=== PATIENT | male | born 1980 | race Caucasian/White ===

== ENCOUNTER 2016-07-16 03:49 | Inpatient (IN) | payer MEDICAID, OTHER ==
[~2016-07-16] VITALS: Ht 170.2 cm; Wt 66.7 kg
--- NOTE | 2016-07-16 04:18 | ERA ---
ER Documentation Chief Complaint Date/Time DATE: 07/16/16 TIME: 04:17 Chief Complaint RUQ abd pain nx 8 days HPI The patient is a 36-year-old male, presenting to the ER because of right upper quadrant abdominal pain intermittently for the last 8 days, worse with eating, . He complains of diarrhea intermittently for the last 5 days, denies any hematochezia. He denies fever, chills, neck pain, chest pain, palpitation, diaphoresis. He does not smoke, drink Past medical/surgical history: None ROS All systems reviewed and are negative except as per history of present illness. Allergies Allergies: Coded Allergies: No Known Allergy (Unverified , 07/16/16) Physical Exam Vitals Vital Signs Date Time Temp Pulse Resp B/P Pulse Ox O2 Delivery O2 Flow Rate FiO2 07/16/16 03:53 98.2 88 20 109/64 100 Physical Exam Const: No acute distress. Head: Atraumatic. Eyes: Normal Conjunctiva. ENT: Normal External Ears, Nose and Mouth. Neck: Full range of motion. No meningismus. Resp: Clear to auscultation bilaterally. Cardio: Regular rate and rhythm, no murmurs. Abd: Soft, non distended, normal bowel sounds, mild epigastric and right upper quadrant tenderness, no rigidity, rebound, CVA tenderness Skin: No petechiae or rashes. Back: No midline or flank tenderness. Ext: No cyanosis, or edema. Neur: Awake and alert. No focal deficit Psych: Normal Mood and Affect. Result Diagram: 07/16/16 0430 07/16/16 0430 Results 24 hrs Laboratory Tests Test 07/16/16 04:30 07/16/16 05:15 Alanine Aminotransferase (ALT/SGPT) 31IU/L Albumin 4.3g/dl Albumin/Globulin Ratio 1.16 Alkaline Phosphatase 113IU/L Anion Gap 17 Aspartate Amino Transf (AST/SGOT) 31IU/L Basophils # 0.110^3/ul Basophils % 0.7% Blood Urea Nitrogen 14mg/dl Calcium Level 9.8mg/dl Carbon Dioxide Level 25mmol/L Chloride Level 104mmol/L Creatinine 0.82mg/dl Direct Bilirubin 0.00mg/dl Eosinophils # 11.110^3/ul Eosinophils % 53.0% Globulin 3.70g/dl Glucose Level 92mg/dl Hematocrit 45.2% Hemoglobin 15.5g/dl Indirect Bilirubin 0.5mg/dl Lipase 104U/L Lymphocytes # 2.810^3/ul Lymphocytes % 13.6% Mean Corpuscular Hemoglobin 29.8pg Mean Corpuscular Hemoglobin Concent 34.4g/dl Mean Corpuscular Volume 86.5fl Mean Platelet Volume 8.4fl Monocytes # 0.910^3/ul Monocytes % 4.2% Neutrophils # 6.010^3/ul Neutrophils % 28.5% Nucleated Red Blood Cells # 0.010^3/ul Nucleated Red Blood Cells % 0.0/100WBC Platelet Count 88196^3/UL Potassium Level 3.8mmol/L Red Blood Count 5.2210^6/ul Red Cell Distribution Width 13.0% Sodium Level 142mmol/L Total Bilirubin 0.5mg/dl Total Protein 8.0g/dl White Blood Count 20.910^3/ul Bedside Urine Blood Negative Bedside Urine Glucose (UA) Negative Bedside Urine Ketones (LAB) Trace Bedside Urine Leukocyte Esterase (L Negative Bedside Urine Nitrite (LAB) Negative Bedside Urine Protein (LAB) Negative Bedside Urine pH (LAB) 5.5 Current Medications Medications (Trade) Dose Ordered Sig/Gale Route PRN Reason Start Time Stop Time Status Last Admin Dose Admin Sodium Chloride (NS) 1,000 ml @ 1,000 mls/hr Q1H STAT IV 07/16/16 04:21 07/16/16 05:20 DC 07/16/16 04:28 Hydromorphone HCl (Dilaudid) 1 mg ONCE STAT IV 07/16/16 04:21 07/16/16 04:23 DC 07/16/16 04:28 Ondansetron HCl (Zofran Inj) 4 mg ONCE STAT IV 07/16/16 04:21 07/16/16 04:23 DC 07/16/16 04:28 Procedures/MDM EKG: Read by emergency physician Rate/Rhythm: Normal Sinus Rhythm 61 beats per min QRS, ST, T-waves: No ST elevation, no T wave inversion Impression: Abnormal EKG MEDICAL MAKING DECISION: The patient is a 36-year-old male, presenting with acute abdominal pain with high leukocytosis, acute enteritis. The differential diagnoses considered include but are not limited to colitis, cholelithiasis, cholecystitis, cystitis, pancreatitis, hepatitis, gastritis, peptic ulcer disease, gastric ulcer, appendicitis, diverticulitis, cholangitis, choledocholithiasis, partial small bowel obstruction. The patient was treated with 1 L normal saline for clinical dehydration, Dilaudid 1 mg IV for pain, Zofran 4 mg IV for nausea, Cipro IV, Flagyl IV with good response Departure Diagnosis: Primary Impression: Abdominal pain Additional Impression: Enteritis Condition: Good Comments I discussed the findings with the patient. I discussed the patient with the on- call hospitalist Dr. Kline who was made aware of the lab, the treatment, the patient condition. The patient is admitted to medical surgery bed at 5:30 AM LUCRECIA SANCHEZ MD Jul 16, 2016 04:18
[2016-07-16] MEDS ORDERED: ONDANSETRON 4 MG INJ IV STA (04:21)
[2016-07-16] MEDS ORDERED: HYDROmorphONE 1 MG/ML SYG IV STA (04:21)
[2016-07-16] MEDS ORDERED: SOD CHLORIDE 0.9% 1,000 ML IV STA (04:21)
[2016-07-16 04:51] LABS: BASOPHIL # 0.1 10^3/ul (0.0-0.1); BASOPHILS % 0.7 % (0.0-2.0); EOSINOPHILS # 11.1 10^3/ul (0.0-0.5); HEMATOCRIT 45.2 % (42.0-52.0); HEMOGLOBIN 15.5 g/dl (14.0-18.0); LYMPHOCYTES # 2.8 10^3/ul (0.8-2.9); LYMPHOCYTES % 13.6 % (15.0-51.0); MEAN CORPUSCULAR HEMOGLOBIN 29.8 pg (29.0-33.0); MEAN CORPUSCULAR HGB CONC 34.4 g/dl (32.0-37.0); MEAN CORPUSCULAR VOLUME 86.5 fl (82.0-101.0); MEAN PLATELET VOLUME 8.4 fl (7.4-10.4); MONOCYTE # 0.9 10^3/ul (0.3-0.9); MONOCYTES % 4.2 % (0.0-11.0); NEUTROPHILS % 28.5 % (39.0-77.0); PLATELET COUNT 242 10^3/UL (140-440); RED BLOOD COUNT 5.22 10^6/ul (4.70-6.10); UNCORRECTED WBC 20.9 10^3/ul (4.8-10.8); WHITE BLOOD COUNT 20.9 10^3/ul (4.8-10.8)
[2016-07-16 05:02] LABS: CONDITION 1; LH ANALYZER COMMENTS 1
--- NOTE | 2016-07-16 05:02 | RADRPT ---
PROCEDURE: ULTRASOUND LIMITED ABDOMEN CLINICAL INDICATION: 36-year-old male with abdominal pain. TECHNIQUE: Multiple sonographic of the right upper quadrant of the abdomen were obtained. The imag es were reviewed on a PACS workstation. COMPARISON: None. FINDINGS: The pancreas is not visualized secondary to overlying bowel gas. The liver displays normal echogenicity. The liver measures 13.9 cm in length. No evidence of intrah epatic biliary ductal dilatation is seen. The portal and hepatic veins are unremarkable. The gallbladder demonstrates no wall thickening, sludge, nor stones. No pericholecystic fluid is see n. The common bile duct measures 2 point a mm and is not dilated. The right kidney displays normal echogenicity. The right kidney measures 9.6 cm in maximal length. N o caliectasis or hydronephrosis is seen. No free fluid is seen. IMPRESSION: Unremarkable right upper quadrant abdominal ultrasound. .Óscar Leon MD, MD Date Time Electronically viewed and signed by .Óscar Loen MD, on 07/16/2016 05:02 .Kuldip/
--- NOTE | 2016-07-16 05:14 | RADRPT ---
PROCEDURE: CT ABDOMEN/PELVIS WITHOUT CONTRAST CLINICAL INDICATION: 36-year-old male with abdominal pain. TECHNIQUE: The study was performed utilizing a [employer] VCT 64-slice CT scanner. Direct axia l sections were obtained through the abdomen and pelvis without the use of intravenous contrast mate rial. Sagittal and coronal reformations were obtained. Automated exposure control and iterative miller nstruction techniques were utilized for this examination. [facility] CTD/vol = 6.7 mGy; Total Exam DLP = 415.6 mGy-cm. COMPARISON: None. FINDINGS: The lung bases are unremarkable. There is no evidence for significant pleural effusion. The liver has a normal size and contour without focal areas of abnormal density. No intrahepatic nor extrahepa tic biliary ductal dilatation is seen. The gallbladder demonstrates no wall thickening nor perichole cystic fluid. No biliary stones are evident. The pancreas is without areas of abnormal attenuation. The spleen is identified and has a normal size without abnormal density. The adrenal glands are unr emarkable. The kidneys are without abnormal density. No hydroureteronephrosis nor nephroureterolithi asis is evident. The urinary bladder contains urine. There is mild fluid identified throughout the s mall bowel without definite transition point. There is mild retained stool within the ascending and transverse colon without obstruction. The appendix is visualized and is without abnormal thickenin g or surrounding inflammatory reaction. There is no significant free fluid. The prostate is not enlarged. Shotty mesenteric lymph nodes are identified. The aortoiliac vessels are without aneurys mal dilatation. The osseous structures are intact. IMPRESSION: 1. No CT evidence for obstructive uropathy or renal calculi. 2. Mild fluid identified throughout the small bowel without obstruction. This may representing ent eritis. 3. Mild retained stool within the proximal colon without obstruction. 4. No CT evidence for appendicitis. 5. Shotty mesenteric lymph nodes. .Óscar Leon MD, Date Time Electronically viewed and signed by .Óscar Leon MD, MD on 07/16/2016 05:14 .Libertad
[2016-07-16 05:16] LABS: URINE BLOOD (Dip) POC Negative (NEGATIVE)
[2016-07-16 05:20] LABS: ALBUMIN 4.3 g/dl (3.3-4.9)
[2016-07-16 05:21] LABS: POTASSIUM 3.8 mmol/L (3.5-5.1)
[2016-07-16 05:23] LABS: ALBUMIN/GLOBULIN RATIO 1.16; BILIRUBIN,INDIRECT 0.5 mg/dl (0-1.1); BILIRUBIN,TOTAL 0.5 mg/dl (0.2-1.3); CREATININE 0.82 mg/dl (0.61-1.24)
[2016-07-16 05:24] LABS: CALCIUM 9.8 mg/dl (8.4-10.2)
--- NOTE | 2016-07-16 05:52 | HP ---
Date/Time of Note Date/Time of Note DATE: 07/16/16 TIME: 05:46 Assessment/Plan VTE Prophylaxis VTE Prophylaxis Intervention: SCD's Assessment/Plan Assessment/Plan 36 yo male with no significant past medical history who complains of abdominal pain and diarrhea for the last 8 days. 1. Abdominal pain - 2/2 infectious colitis - will admit the patient to med/surg , continue with cipro/flagyl, obtain stool studies, monitor acute changes, IVF, start clear liquid diet as tolerated. 2. Leukocytosis 2/2 #1 - continue to monitor trend and cultures 3. Dehydration 2/2 #1 - continue with IVF 4. GI ppx - pepcid 5. DVT ppx - scds answered all of his questions. as per clinical course. this history and physical took greater then 45 minutes to complete HPI/ROS Admit Date/Time Admit Date/Time 07/16/2016, 5:46 am Hx of Present Illness 36 yo male with no significant past medical history who complains of abdominal pain and diarrhea for the last 8 days. He states that the abdominal pain is diffuse, crampy in nature, 10/10 in intensity, no alleviating factors, associated with diarrhea 3 x day for the past 5 days, non-bloody. Otherwise having intermittent fevers/chills and generalized malaise. Denies any chest pain , shortness of breath, loss of consciousness, headaches, urinary symptoms or other constitutional symptoms. Denies any new foods, undercook meats, recent travel or sick contacts. ER course: pain medication, IV cipro/flagyl ROS 14 point review of systems completed, please refer to HPI for any positive findings PMH/Family/Social Past Medical History Medical History: no pertinent history Past Surgical History Past Surgical Hx: no surgical history Family History Significant Family History: no pertinent family hx Social History Alcohol Use: none Smoking Status: Never smoker Drug Use: none Exam/Review of Systems Vital Signs Vitals Vital Signs Date Time Temp Pulse Resp B/P Pulse Ox O2 Delivery O2 Flow Rate FiO2 07/16/16 05:43 64 16 106/70 99 Room Air 07/16/16 03:53 98.2 Exam Exam Gen Brown: moderate distress 2/2 abdominal pain, AAOx4 HEENT: NC/AT, PERRLA, EOMI, no pharyngeal erythema, no tonsillar exudates, no lymphadenopathy, no JVD, no carotid bruits NECK: supple, no thyromegaly THORAX: symmetrical, no obvious deformities CV: S1S2, RRR, no M/G/R Lungs: CTAB no W/C/R/R Abd: soft, tenderness to palpation all quadrants/ND, +BS, no rebound, no guarding, neg HSM EXT: no edema, no ecchymosis, no clubbing, FROM Neuro: CN II-XII grossly intact, no focal deficits Psych: anxious Skin: C/D/I Labs Result Diagram: 07/16/1642907/16/16429 Medications Medications Current Medications Ciprofloxacin/ Dextrose 200 ml @ 200 mls/hr ONCE ONCE IVPB Last administered on 07/16/16t 05:37; Admin Dose 200 MLS/HR; Start 07/16/16 at 06:00; Stop at 06:59 Metronidazole (Flagyl 500 Mg (Pmx)) 100 ml @ 100 mls/hr ONCE ONCE IVPB ; Start 07/16/16 at 06:00; Stop 07/16/16 at 06:[address] abd/pelvis IMPRESSION: 1. No CT evidence for obstructive uropathy or renal calculi. 2. Mild fluid identified throughout the small bowel without obstruction. This may representing enteritis. 3. Mild retained stool within the proximal colon without obstruction. 4. No CT evidence for appendicitis. 5. Shotty mesenteric lymph nodes. US gallbladder IMPRESSION: Unremarkable right upper quadrant abdominal ultrasound ORLANDO RASHID MD Jul 16, 2016 05:52
[2016-07-16] MEDS ORDERED: metroNIDAZOLE 500 MG/NS (PMX) 100 ML IVPB ONE (06:00)
[2016-07-16] MEDS ORDERED: morphine 2 MG INJ IV PRN (06:00)
[2016-07-16] MEDS ORDERED: CIPROFLOXACIN 400MG/D5W 200 ML IVPB ONE (06:00)
[2016-07-16] MEDS ORDERED: NACL 0.9% 3 ML SYG IV SCH (06:00)
[2016-07-16] MEDS: ONDANSETRON 4 MG INJ IV PRN (06:47)
[2016-07-16] MEDS: SOD CHLORIDE 0.9% 1,000 ML IV SCH ×2 (06:49→11:14)
[2016-07-16 07:12] VITALS: TEMP 98.3
[2016-07-16 07:19] LABS: MAGNESIUM 1.8 mg/dl (1.7-2.5)
[2016-07-16 07:40] VITALS: Ht 170.2 cm; Wt 66.7 kg
[2016-07-16 07:50] LABS: THYROID STIMULATING HORMONE 2.29 MIU/L (0.465-4.680)
[2016-07-16] MEDS: FAMOTIDINE 20 MG INJ IV SCH ×2 (08:28→20:52)
[2016-07-16] MEDS: metroNIDAZOLE 500 MG/NS (PMX) 100 ML IVPB SCH ×2 (14:16→22:33)
[2016-07-16 19:00] VITALS: BP 105/63; RESP 19
[2016-07-16] MEDS: CIPROFLOXACIN 400MG/D5W 200 ML IVPB SCH (20:52)
[2016-07-16] MEDS: DOCUSATE SODIUM 100 MG CAP PO SCH (20:52)
[2016-07-16] MEDS: ACETAMINOPHEN 325 MG TAB PO PRN (20:53)
[2016-07-17] MEDS: SOD CHLORIDE 0.9% 1,000 ML IV SCH ×4 (01:42→20:47)
[2016-07-17] MEDS: metroNIDAZOLE 500 MG/NS (PMX) 100 ML IVPB SCH ×3 (05:51→22:09)
[2016-07-17 06:41] LABS: HEMATOCRIT 41.1 % (42.0-52.0); HEMOGLOBIN 14.4 g/dl (14.0-18.0); MEAN CORPUSCULAR HEMOGLOBIN 30.2 pg (29.0-33.0); MEAN CORPUSCULAR HGB CONC 34.9 g/dl (32.0-37.0); MEAN CORPUSCULAR VOLUME 86.5 fl (82.0-101.0); MEAN PLATELET VOLUME 8.4 fl (7.4-10.4); PLATELET COUNT 209 10^3/UL (140-440); RED BLOOD COUNT 4.76 10^6/ul (4.70-6.10); RED CELL DISTRIBUTION WIDTH 12.8 % (11.5-14.5); UNCORRECTED WBC 13.6 10^3/ul (4.8-10.8); WHITE BLOOD COUNT 13.6 10^3/ul (4.8-10.8)
[2016-07-17 07:11] LABS: CONDITION 1; LH ANALYZER COMMENTS 1
[2016-07-17 07:12] LABS: POTASSIUM 4.1 mmol/L (3.5-5.1)
[2016-07-17 07:15] LABS: CALCIUM 8.8 mg/dl (8.4-10.2); CREATININE 0.85 mg/dl (0.61-1.24)
[2016-07-17 07:48] VITALS: BP 115/52; RESP 18
[2016-07-17] MEDS: DOCUSATE SODIUM 100 MG CAP PO SCH ×2 (08:32→20:49)
[2016-07-17] MEDS: FAMOTIDINE 20 MG INJ IV SCH ×2 (08:33→20:50)
[2016-07-17] MEDS: CIPROFLOXACIN 400MG/D5W 200 ML IVPB SCH ×2 (08:33→20:47)
[2016-07-17] MEDS ORDERED: INFLUENZA VIRUS VACCINE 0.5 ML (DISPENSING) IM* ONE (09:00)
[2016-07-17] MEDS ORDERED: METR500T PO (10:21)
[2016-07-17] MEDS ORDERED: CIPR500T4 PO (10:21)
--- NOTE | 2016-07-17 10:24 | PN ---
Date/Time of Note Date/Time of Note DATE: 07/17/16 TIME: 10:06 Assessment/Plan VTE Prophylaxis VTE Prophylaxis Intervention: ambulation Lines/Catheters IV Catheter Type (from Nrs): Peripheral IV Urinary Cath still in place: No Assessment/Plan Assessment/Plan 36 yo male with no significant past medical history who complains of abdominal pain and diarrhea for the last 8 days. 1. Abdominal pain - 2/2 infectious colitis - will admit the patient to med/surg , continue with cipro/flagyl, obtain stool studies, monitor acute changes, IVF, start clear liquid diet as tolerated. 2. Leukocytosis 2/2 #1 - continue to monitor trend and cultures 3. Dehydration 2/2 #1 - continue with IVF 4. GI ppx - pepcid 5. DVT ppx - scds answered all of his questions. as per clinical course. Subjective 24 Hr Interval Summary Free Text/Dictation patient feeling hungry, denies abd pain Exam/Review of Systems Vital Signs Vitals Vital Signs Date Time Temp Pulse Resp B/P Pulse Ox O2 Delivery O2 Flow Rate FiO2 07/17/16 07:48 98.2 59 18 115/52 97 07/16/16 07:12 Room Air Intake and Output 07/16/16 07/16/16 07/17/16 15:00 23:00 07:00 Intake Total 1000 ml 2100 ml 800 ml Balance 1000 ml 2100 ml 800 ml Exam Gen Brown: No distress, AAOx4 HEENT: NC/AT, PERRLA, EOMI, no pharyngeal erythema, no tonsillar exudates, no lymphadenopathy, no JVD, no carotid bruits NECK: supple, no thyromegaly THORAX: symmetrical, no obvious deformities CV: S1S2, RRR, no M/G/R Lungs: CTAB no W/C/R/R Abd: soft, no tenderness to palpation all quadrants/ND, +BS, no rebound, no guarding, neg HSM EXT: no edema, no ecchymosis, no clubbing, FROM Neuro: CN II-XII grossly intact, no focal deficits Psych: anxious Skin: C/D/I Results Result Diagram: 07/17/16 0500 07/17/16 0500 Results 24 hrs Laboratory Tests Test 07/17/16 05:00 Anion Gap 14 Basophils # Pending Basophils % Pending Blood Urea Nitrogen 8 Calcium Level 8.8 Carbon Dioxide Level 25 Chloride Level 107 Creatinine 0.85 Eosinophils # Pending Eosinophils % Pending Glucose Level 65 #L Hematocrit 41.1 L Hemoglobin 14.4 Lymphocytes # Pending Lymphocytes % Pending Magnesium Level 1.9 Mean Corpuscular Hemoglobin 30.2 Mean Corpuscular Hemoglobin Concent 34.9 Mean Corpuscular Volume 86.5 Mean Platelet Volume 8.4 Monocytes # Pending Monocytes % Pending Neutrophils # Pending Neutrophils % Pending Nucleated Red Blood Cells # Pending Nucleated Red Blood Cells % Pending Platelet Count 209 Potassium Level 4.1 Red Blood Count 4.76 Red Cell Distribution Width 12.8 Sodium Level 142 White Blood Count 13.6 #H Medications Medications Current Medications Sodium Chloride (NS) 1,000 ml @ 100 mls/hr Q10H IV Last administered on 04:06; Admin Dose 100 MLS/HR; Start 07/16/16 at 05:42 Ondansetron HCl (Zofran Inj) 4 mg Q6H PRN IV NAUSEA AND/OR VOMITING Last administered on 07/16/16 06:47; Admin Dose 4 MG; Start 07/16/16 at 06:00 Acetaminophen (Tylenol Tab) 650 mg Q6H PRN PO PAIN LEVEL 1-3 OR FEVER Last administered on 07/16/16 20:53; Admin Dose 650 MG; Start 07/16/16 at 06:00 Morphine Sulfate (morphine) 2 mg Q4H PRN IV SEVERE PAIN LEVEL 7-10 Last administered on 07/16/16 11:28; Admin Dose 2 MG; Start 07/16/16 at 06:00 Famotidine 20 mg 20 mg Q12 IV Last administered on 07/17/16 08:33; Admin Dose 20 MG; Start 07/16/16 at 09:00 Ciprofloxacin/ Dextrose 200 ml @ 200 mls/hr Q12 IVPB Last administered on 07/17 08:33; Admin Dose 200 MLS/HR; Start 07/16/16 at 21:00 Metronidazole (Flagyl 500 Mg (Pmx)) 100 ml @ 100 mls/hr Q8 IVPB Last administered on 07/17/16 05:51; Admin Dose 100 MLS/HR; Start 07/16/16 at 14:00 Docusate Sodium (Colace) 100 mg BID PO Last administered on 07/17/16 08:32; Admin Dose 100 MG; Start 07/16/16 at 21:00 STEFANY SO Jul 17, 2016 10:16
[2016-07-17 10:51] LABS: BASOPHIL # 0.4 10^3/ul (0.0-0.1); EOSINOPHILS # 5.4 10^3/ul (0.0-0.5); LYMPHOCYTES # 2.6 10^3/ul (0.8-2.9); MONOCYTE # 0.7 10^3/ul (0.3-0.9); NEUTROPHIL # 4.4 10^3/ul (1.6-7.5)
[2016-07-17] MEDS: ACETAMINOPHEN 325 MG TAB PO PRN ×2 (15:13→20:49)
[2016-07-17 20:25] VITALS: BP 110/55; RESP 20
[2016-07-17] MEDS: ONDANSETRON 4 MG INJ IV PRN (22:10)
[2016-07-18] MEDS: ACETAMINOPHEN 325 MG TAB PO PRN ×2 (02:39→10:22)
[2016-07-18] MEDS: ONDANSETRON 4 MG INJ IV PRN ×2 (06:00→18:35)
[2016-07-18] MEDS: metroNIDAZOLE 500 MG/NS (PMX) 100 ML IVPB SCH ×3 (06:01→22:18)
[2016-07-18] MEDS: SOD CHLORIDE 0.9% 1,000 ML IV SCH ×3 (07:42→17:42)
[2016-07-18 08:00] VITALS: BP 101/60; RESP 24
[2016-07-18] MEDS: FAMOTIDINE 20 MG INJ IV SCH (08:40)
[2016-07-18] MEDS: DOCUSATE SODIUM 100 MG CAP PO SCH ×2 (08:40→20:28)
[2016-07-18] MEDS: CIPROFLOXACIN 400MG/D5W 200 ML IVPB SCH ×2 (08:40→20:28)
--- NOTE | 2016-07-18 11:01 | PN ---
Date/Time of Note Date/Time of Note DATE: 07/18/16 TIME: 10:58 Assessment/Plan VTE Prophylaxis VTE Prophylaxis Intervention: SCD's Lines/Catheters IV [facility] ([facility] Peripheral IV Urinary Cath still in place: No Assessment/Plan Assessment/Plan 36 yo male with no significant past medical history who complains of abdominal pain and diarrhea for the last 8 days. 1. Abdominal pain - 2/2 #2 2. Acute enteritis r/o PUD 3. Leukocytosis 2/2 #1 - improved 4. Eosinophilia on CBC PLAN: Cont abx / GI consult / f/u stool studies / d/c pepcid and start PPI IV /pain control/ antiemetics/ antipyretics/ supportive care GI ppx - PPI DVT ppx - scds answered all of his questions. as per clinical course. Subjective 24 Hr Interval Summary Free Text/Dictation still with abd pain omero with food Exam/Review of Systems Vital Signs Vitals Vital Signs Date Time Temp Pulse Resp B/P Pulse Ox O2 Delivery O2 Flow Rate FiO2 07/18/16 08:00 98.5 54 24 101/60 97 07/16/16 07:12 Room Air Intake and Output 07/17/16 07/17/16 07/18/16 15:00 23:00 07:00 Intake Total 2400 ml 1380 ml Balance 2400 ml 1380 ml Exam Constitutional: alert, oriented Psych: anxiety Head: atraumatic, normocephalic Eyes: PERRL ENMT: mucosa pink and moist Respiratory: clear to auscultation Cardiovascular: regular rate and rhythm, No murmurs/extra sounds Gastrointestinal: bowel sounds, non-tender, soft Extremities: No edema Neurological: nl mental status, nl speech Results Result Diagram: 07/17/16 0500 07/17/16 0500 Medications Medications Current Medications Sodium Chloride (NS) 1,000 ml @ 100 mls/hr Q10H IV Last administered on 20:47; Admin Dose 100 MLS/HR; Start 07/16/16 at 05:42 Ondansetron HCl (Zofran Inj) 4 mg Q6H PRN IV NAUSEA AND/OR VOMITING Last administered on 07/18/16 06:00; Admin Dose 4 MG; Start 07/16/16 at 06:00 Acetaminophen (Tylenol Tab) 650 mg Q6H PRN PO PAIN LEVEL 1-3 OR FEVER Last administered on 07/18/16 10:22; Admin Dose 650 MG; Start 07/16/16 at 06:00 Morphine Sulfate (morphine) 2 mg Q4H PRN IV SEVERE PAIN LEVEL 7-10 Last administered on 07/16/16 11:28; Admin Dose 2 MG; Start 07/16/16 at 06:00 Famotidine 20 mg 20 mg Q12 IV Last administered on 07/18/16 08:40; Admin Dose 20 MG; Start 07/16/16 at 09:00 Ciprofloxacin/ Dextrose 200 ml @ 200 mls/hr Q12 IVPB Last administered on 07/18 08:40; Admin Dose 200 MLS/HR; Start 07/16/16 at 21:00 Metronidazole (Flagyl 500 Mg (Pmx)) 100 ml @ 100 mls/hr Q8 IVPB Last administered on 07/18/16 06:01; Admin Dose 100 MLS/HR; Start 07/16/16 at 14:00 Docusate Sodium (Colace) 100 mg BID PO Last administered on 07/18/16 08:40; Admin Dose 100 MG; Start 07/16/16 at 21:00 STEFANY SO Jul 18, 2016 11:01
[2016-07-18 11:35] LABS: BASOPHIL # 0.1 10^3/ul (0.0-0.1); BASOPHILS % 1.2 % (0.0-2.0); EOSINOPHILS # 1.6 10^3/ul (0.0-0.5); EOSINOPHILS % 20.5 % (0.0-7.0); HEMATOCRIT 40.3 % (42.0-52.0); HEMOGLOBIN 13.9 g/dl (14.0-18.0); LYMPHOCYTES # 1.8 10^3/ul (0.8-2.9); LYMPHOCYTES % 22.7 % (15.0-51.0); MEAN CORPUSCULAR HEMOGLOBIN 29.8 pg (29.0-33.0); MEAN CORPUSCULAR HGB CONC 34.5 g/dl (32.0-37.0); MEAN CORPUSCULAR VOLUME 86.4 fl (82.0-101.0); MEAN PLATELET VOLUME 7.9 fl (7.4-10.4); MONOCYTE # 0.8 10^3/ul (0.3-0.9); MONOCYTES % 9.9 % (0.0-11.0); NEUTROPHIL # 3.6 10^3/ul (1.6-7.5); NEUTROPHILS % 45.7 % (39.0-77.0); PLATELET COUNT 207 10^3/UL (140-440); RED BLOOD COUNT 4.67 10^6/ul (4.70-6.10); RED CELL DISTRIBUTION WIDTH 12.9 % (11.5-14.5); UNCORRECTED WBC 7.9 10^3/ul (4.8-10.8); WHITE BLOOD COUNT 7.9 10^3/ul (4.8-10.8)
[2016-07-18 11:36] LABS: CONDITION 1; LH ANALYZER COMMENTS 1; POTASSIUM 3.8 mmol/L (3.5-5.1)
[2016-07-18 11:39] LABS: CALCIUM 8.8 mg/dl (8.4-10.2); CREATININE 0.79 mg/dl (0.61-1.24)
--- NOTE | 2016-07-18 12:06 | CONS ---
Date/Time of Note Date/Time of Note DATE: 07/18/16 TIME: 11:55 Assessment/Plan Assessment/Plan Chief Complaint/Hosp Course Impression: 1. Abdominal pain 2. peripheral eosinophilia: r/o parasites, eosinophilic gastroenterolitis, eosinophilic colitis. 3. Leukocytosis: improved 4. Diarrhea PLAN: 1. protonix for management of possible esophagitis, gastritic, PUD 2. plan for EGD and colonoscopy tomorrow for diagnosis and to obtain biopsies from upper and lower intestines. 3. f/u stool studies. For whatever reason, pt had BM yesterday but stool studies were not collected but were ordered since 07-16-16. Due to the peripheral eosinophilia, will need to r/o O&P. I wrote a nurse communication explain this so hopefully will be collected. 4. OK from GI perspective to continue with bushra and lashonda for now. Problems: Consultation Date/Type/Reason Admit Date/Time 07/16/2016, 5:46 am Type of Consultation: GI Hx of Present Illness 36 yo male with no significant past medical history who complains of abdominal pain and diarrhea for the 10 days prior to admission. He states that the abdominal pain is diffuse, crampy in nature, epigastric region, 10/10 in intensity, no alleviating factors. He has associated diarrhea 3 x day, watery, non-bloody. He continued to have diarrhea during this hospitalization, last episode today. Patient has nausea and vomiting during this hospitalization but associated with antibiotics that were given during this hospitalization. Otherwise having intermittent fevers/chills and generalized malaise. Denies any chest pain, shortness of breath, loss of consciousness, headaches, urinary symptoms or other constitutional symptoms. Denies any new foods, undercook meats , recent travel or sick contacts. Work up showed eosinophilia. All point ROS administered, pertinent positives and negatives in HPI otherwise negative. Psychological: anxiety Past Medical History Medical History: no pertinent history Past Surgical History Past Surgical Hx: no surgical history Family History Significant Family History: no pertinent family hx Social History Alcohol Use: none Smoking Status: Never smoker Drug Use: none Exam/Review of Systems Vital Signs Vitals Vital Signs Date Time Temp Pulse Resp B/P Pulse Ox O2 Delivery O2 Flow Rate FiO2 07/18/16 08:00 98.5 54 24 101/60 97 07/16/16 07:12 Room Air Intake and Output 07/17/16 07/17/16 07/18/16 15:00 23:00 07:00 Intake Total 2400 ml 1380 ml Balance 2400 ml 1380 ml Exam Constitutional: alert, oriented, well developed Psych: nl mood/affect, no complaints Head: atraumatic, normocephalic Eyes: EOMI, nl conjunctiva, nl lids, nl sclera ENMT: mucosa pink and moist, nl external ears & nose, nl lips & teeth, nl nasal mucosa & septum Neck: non-tender, supple Respiratory: clear to auscultation, normal air movement Cardiovascular: nl pulses, regular rate and rhythm Gastrointestinal: bowel sounds, soft, tender (epigastric region, no r/g) Musculoskeletal: nl extremities to inspection, nl gait and stance Neurological: nl mental status, nl speech, nl strength Results Result Diagram: 07/18/16 1100 07/18/16 1100 Results 24 hrs Laboratory Tests Test 07/18/16 11:00 Anion Gap 15 Basophils # 0.1 Basophils % 1.2 Blood Urea Nitrogen 6 L Calcium Level 8.8 Carbon Dioxide Level 25 Chloride Level 105 Creatinine 0.79 Eosinophils # 1.6 H Eosinophils % 20.5 H Glucose Level 91 Hematocrit 40.3 L Hemoglobin 13.9 L Lymphocytes # 1.8 Lymphocytes % 22.7 Mean Corpuscular Hemoglobin 29.8 Mean Corpuscular Hemoglobin Concent 34.5 Mean Corpuscular Volume 86.4 Mean Platelet Volume 7.9 Monocytes # 0.8 Monocytes % 9.9 Neutrophils # 3.6 Neutrophils % 45.7 Nucleated Red Blood Cells # 0.0 Nucleated Red Blood Cells % 0.0 Platelet Count 207 Potassium Level 3.8 Red Blood Count 4.67 L Red Cell Distribution Width 12.9 Sodium Level 141 White Blood Count 7.9 # Medications Medications Current Medications Sodium Chloride (NS) 1,000 ml @ 100 mls/hr Q10H IV Last administered on 11:44; Admin Dose 100 MLS/HR; Start 07/16/16 at 05:42 Ondansetron HCl (Zofran Inj) 4 mg Q6H PRN IV NAUSEA AND/OR VOMITING Last administered on 07/18/16 06:00; Admin Dose 4 MG; Start 07/16/16 at 06:00 Acetaminophen (Tylenol Tab) 650 mg Q6H PRN PO PAIN LEVEL 1-3 OR FEVER Last administered on 07/18/16 10:22; Admin Dose 650 MG; Start 07/16/16 at 06:00 Morphine Sulfate 2 mg 2 mg Q4H PRN IV SEVERE PAIN LEVEL 7-10 Last administered on 07/16/16 11:28; Admin Dose 2 MG; Start 07/16/16 at 06:00 Ciprofloxacin/ Dextrose 200 ml @ 200 mls/hr Q12 IVPB Last administered on 07/18 08:40; Admin Dose 200 MLS/HR; Start 07/16/16 at 21:00 Metronidazole (Flagyl 500 Mg (Pmx)) 100 ml @ 100 mls/hr Q8 IVPB Last administered on 07/18/16 06:01; Admin Dose 100 MLS/HR; Start 07/16/16 at 14:00 Docusate Sodium (Colace) 100 mg BID PO Last administered on 07/18/16 08:40; Admin Dose 100 MG; Start 07/16/16 at 21:00 Pantoprazole (Protonix Iv) 40 mg BID@06,18 IV ; Start 07/18/16 at 11:00 Bisacodyl (Dulcolax) 10 mg ONCE ONCE PO ; Start 07/18/16 at 16:00; Stop at 16:01; Status UNV Magnesium Citrate (Citroma) 300 ml ONCE ONCE PO ; Start 07/18/16 at 18:00; Stop 07/18/16 at 18:01; Status UNV MICHAEL ANGULO MD Jul 18, 2016 12:05
[2016-07-18] MEDS: PANTOPRAZOLE 40 MG INJ IV SCH ×2 (12:59→17:55)
[2016-07-18] MEDS ORDERED: BISACODYL (EC) 5 MG TAB PO ONE (16:00)
[2016-07-18] MEDS: METOCLOPRAMIDE 10 MG INJ IV SCH ×2 (16:16→22:18)
[2016-07-18] MEDS ORDERED: MAGNESIUM CITRATE 300 ML BTL PO ONE (18:00)
[2016-07-18 19:21] VITALS: BP 89/53; RESP 16
[2016-07-18] MEDS ORDERED: POLYETHYLENE GLYCOL 3350 119 GM POWDER PO ONE (20:00)
[2016-07-18 21:00] VITALS: BP 96/58; PULSE 59
[2016-07-19] VITALS (9 sets, daily range): BP systolic 91–110; BP diastolic 55–72; PULSE 52–59; RESP 16–22
[2016-07-19] MEDS: SOD CHLORIDE 0.9% 1,000 ML IV SCH ×3 (03:20→23:11)
[2016-07-19] MEDS: PANTOPRAZOLE 40 MG INJ IV SCH ×2 (05:28→18:47)
[2016-07-19] MEDS: metroNIDAZOLE 500 MG/NS (PMX) 100 ML IVPB SCH ×3 (05:29→23:11)
[2016-07-19 05:39] LABS: BASOPHIL # 0.1 10^3/ul (0.0-0.1); BASOPHILS % 0.8 % (0.0-2.0); EOSINOPHILS # 2.3 10^3/ul (0.0-0.5); EOSINOPHILS % 26.9 % (0.0-7.0); HEMATOCRIT 41.2 % (42.0-52.0); HEMOGLOBIN 14.5 g/dl (14.0-18.0); LYMPHOCYTES # 1.9 10^3/ul (0.8-2.9); LYMPHOCYTES % 22.9 % (15.0-51.0); MEAN CORPUSCULAR HEMOGLOBIN 30.8 pg (29.0-33.0); MEAN CORPUSCULAR HGB CONC 35.3 g/dl (32.0-37.0); MEAN CORPUSCULAR VOLUME 87.3 fl (82.0-101.0); MEAN PLATELET VOLUME 8.1 fl (7.4-10.4); MONOCYTE # 0.7 10^3/ul (0.3-0.9); MONOCYTES % 8.7 % (0.0-11.0); NEUTROPHIL # 3.4 10^3/ul (1.6-7.5); NEUTROPHILS % 40.7 % (39.0-77.0); PLATELET COUNT 205 10^3/UL (140-440); RED BLOOD COUNT 4.72 10^6/ul (4.70-6.10); RED CELL DISTRIBUTION WIDTH 13.2 % (11.5-14.5); UNCORRECTED WBC 8.4 10^3/ul (4.8-10.8); WHITE BLOOD COUNT 8.4 10^3/ul (4.8-10.8)
[2016-07-19 05:49] LABS: CONDITION 1; LH ANALYZER COMMENTS 1
[2016-07-19 05:55] LABS: POTASSIUM 3.8 mmol/L (3.5-5.1)
[2016-07-19 05:57] LABS: CREATININE 0.86 mg/dl (0.61-1.24)
[2016-07-19 05:58] LABS: CALCIUM 8.8 mg/dl (8.4-10.2)
[2016-07-19 05:59] LABS: INR 1.4; PROTIME 17.2 Sec (12.2-14.2); PT RATIO 1.3
--- NOTE | 2016-07-19 08:59 | OPR ---
Date/Time of Note Date/Time of Note DATE: 07/19/16 TIME: 08:47 Operative Report Free Text/Dictation Impression: 1. severe gastropathy 2. 3 cm hiatal hernia 3. mildly edematous atrophic duodenum 4. rectal polyp 5. small internal hemorrhoids Recommendations: 1. f/u all biopsies 2. continue protonix 40 mg bid 3. I sent off H. pylori serology and treat for eradication if positive. Procedure Date: Jul 19, 2016 Preoperative Diagnosis 1. intractable abdominal pain 2. intractable nausea and vomiting 3. watery diarrhea Postoperative Diagnosis 1. moderate to severe gastropathy 2. rectal polyp s/p polypectomy Operation Performed 1. EGD with biopsy 2. colonoscopy with biopsy and polypectomy Anesthesia: other (conscious sedation with versed 4 mg and fentanyl 100 mcg iv throughout the procedure) Estimated Blood Loss: minimal Specimens duodenal, gastric and colon biopsies rectal polyp Tubes/Drains none Complications: None Pt Condition Post Procedure: stable Disposition: other (recover in GI lab and transfer to patient's in-pt room once meets post-conscious sedation criteria) Indications intractable nausea, vomiting, abdominal pain and diarrhea. Procedure Description After we obtained informed consent and time out, we inserted an adult EGD scope from the mouth and advanced to the second portion of the duodenum. The duodenal bulb and visualized duodenum appeared mildly atrophic and random biopsies were taken. The EGD scope then withdrawn to the stomach where antrum and body appeared to have severe gastropathy with redness, erythema, and erosions. Random biopsies were obtained from the antrum and body. Retroflexion done in the body of stomach revealing 3 cm hiatal hernia and less gastropathy in the fundus and cardia. GEJ and Z line at 38 cm. I then removed air and completely withdrawn the EGD scope. After the completion of EGD, we turned the patient around for a colonoscopy. Perianal exam was normal with normal rectal tone, no anal fissure/ulcer/ erosions. I then inserted an adult colonoscope from the anus to the cecum as evidenced by IC valve and appendiceal orifice. The colon appeared normal except for a diminutive rectal polyp s/p polypectomy with complete excision. I took random biopsies in the right colon, transverse colon, left colon and rectum. Retroflexion was performed in the rectum revealing small internal hemorrhoids. I then completely removed the colonoscope while removing air. MICHAEL ANGULO MD Jul 19, 2016 08:59
[2016-07-19] MEDS: CIPROFLOXACIN 400MG/D5W 200 ML IVPB SCH ×2 (09:52→21:37)
[2016-07-19] MEDS: DOCUSATE SODIUM 100 MG CAP PO SCH ×2 (09:53→21:00)
--- NOTE | 2016-07-19 10:05 | PN ---
Date/Time of Note Date/Time of Note DATE: 07/19/16 TIME: 10:01 Assessment/Plan VTE Prophylaxis VTE Prophylaxis Intervention: SCD's Lines/Catheters IV [facility]ter Type (from [facility]): Peripheral IV Urinary Cath still in place: No Assessment/Plan Assessment/Plan 36 yo male with no significant past medical history who complains of abdominal pain and diarrhea for the last 8 days. 1. Abdominal pain - 2/2 #2 2. Acute enteritis r/o PUD 3. Leukocytosis 2/2 #1 - improved 4. Eosinophilia on CBC: f/u path to r/o IBD/ Stool testing negative for O&P 5. Severe Gastropathy on EGD with atrophic edematous duodenum PLAN: Continue to follow GI recs / possible d/c once tolerating a diet without pain and if cleared by GI Cont abx /pain control/ antiemetics/ antipyretics/ supportive care GI ppx - PPI DVT ppx - scds answered all of his questions. as per clinical course. Subjective 24 Hr Interval Summary Free Text/Dictation s/p EGD / colon this am. Lethargic Exam/Review of Systems Vital Signs Vitals Vital Signs Date Time Temp Pulse Resp B/P Pulse Ox O2 Delivery O2 Flow Rate FiO2 07/19/16 09:17 18 109/71 100 Room Air 07/19/16 08:10 97.1 52 Intake and Output 07/18/16 07/18/16 07/19/16 15:00 23:00 07:00 Intake Total 600 ml 500 ml 1200 ml Balance 600 ml 500 ml 1200 ml Exam Constitutional: oriented, No distress Head: normocephalic Eyes: PERRL Respiratory: clear to auscultation Cardiovascular: regular rate and rhythm Gastrointestinal: bowel sounds, soft, tender (sore) Extremities: No edema Neurological: lethargic Results Result Diagram: 07/19/16 0505 07/19/16 0505 Results 24 hrs Laboratory Tests Test 07/18/16 11:00 07/19/16 05:05 Anion Gap 15 14 Basophils # 0.1 0.1 Basophils % 1.2 0.8 Blood Urea Nitrogen 6 L 5 L Calcium Level 8.8 8.8 Carbon Dioxide Level 25 26 Chloride Level 105 107 Creatinine 0.79 0.86 Eosinophils # 1.6 H 2.3 H Eosinophils % 20.5 H 26.9 H Glucose Level 91 84 Hematocrit 40.3 L 41.2 L Hemoglobin 13.9 L 14.5 Lymphocytes # 1.8 1.9 Lymphocytes % 22.7 22.9 Mean Corpuscular Hemoglobin 29.8 30.8 Mean Corpuscular Hemoglobin Concent 34.5 35.3 Mean Corpuscular Volume 86.4 87.3 Mean Platelet Volume 7.9 8.1 Monocytes # 0.8 0.7 Monocytes % 9.9 8.7 Neutrophils # 3.6 3.4 Neutrophils % 45.7 40.7 Nucleated Red Blood Cells # 0.0 0.0 Nucleated Red Blood Cells % 0.0 0.0 Platelet Count 207 205 Potassium Level 3.8 3.8 Red Blood Count 4.67 L 4.72 Red Cell Distribution Width 12.9 13.2 Sodium Level 141 143 White Blood Count 7.9 # 8.4 INR International Normalized Ratio 1.40 Prothrombin Time 17.2 H Prothrombin Time Ratio 1.3 Medications Medications Current Medications Sodium Chloride (NS) 1,000 ml @ 100 mls/hr Q10H IV Last administered on 03:20; Admin Dose 100 MLS/HR; Start 07/16/16 at 05:42 Ondansetron HCl (Zofran Inj) 4 mg Q6H PRN IV NAUSEA AND/OR VOMITING Last administered on 07/18/16 18:35; Admin Dose 4 MG; Start 07/16/16 at 06:00 Acetaminophen (Tylenol Tab) 650 mg Q6H PRN PO PAIN LEVEL 1-3 OR FEVER Last administered on 07/18/16 10:22; Admin Dose 650 MG; Start 07/16/16 at 06:00 Morphine Sulfate 2 mg 2 mg Q4H PRN IV SEVERE PAIN LEVEL 7-10 Last administered on 07/16/16 11:28; Admin Dose 2 MG; Start 07/16/16 at 06:00 Ciprofloxacin/ Dextrose 200 ml @ 200 mls/hr Q12 IVPB Last administered on 07/19 09:52; Admin Dose 200 MLS/HR; Start 07/16/16 at 21:00 Metronidazole (Flagyl 500 Mg (Pmx)) 100 ml @ 100 mls/hr Q8 IVPB Last administered on 07/19/16 05:29; Admin Dose 100 MLS/HR; Start 07/16/16 at 14:00 Docusate Sodium (Colace) 100 mg BID PO Last administered on 07/19/16 09:53; Admin Dose 100 MG; Start 07/16/16 at 21:00 Pantoprazole (Protonix Iv) 40 mg BID@06,18 IV Last administered on 07/19/16 05 :28; Admin Dose 40 MG; Start 07/18/16 at 11:00 Procedures Procedures Impression: 1. severe gastropathy 2. 3 cm hiatal hernia 3. mildly edematous atrophic duodenum 4. rectal polyp 5. small internal hemorrhoids Recommendations: 1. f/u all biopsies 2. continue protonix 40 mg bid 3. I sent off H. pylori serology and treat for eradication if positive. Procedure Date: Jul 19, 2016 Preoperative Diagnosis 1. intractable abdominal pain 2. intractable nausea and vomiting 3. watery diarrhea Postoperative Diagnosis 1. moderate to severe gastropathy 2. rectal polyp s/p polypectomy Operation Performed 1. EGD with biopsy 2. colonoscopy with biopsy and polypectomy STEFANY SO Jul 19, 2016 10:05
[2016-07-20] MEDS: PANTOPRAZOLE 40 MG INJ IV SCH (05:59)
[2016-07-20] MEDS: metroNIDAZOLE 500 MG/NS (PMX) 100 ML IVPB SCH (06:00)
--- NOTE | 2016-07-20 06:07 | CONS ---
Date/Time of Note Date/Time of Note DATE: 07/20/16 TIME: 06:04 Assessment/Plan Assessment/Plan Chief Complaint/Hosp Course Impression: 1. Abdominal pain: resolved 2. peripheral eosinophilia: r/o parasites, eosinophilic gastroenterolitis, eosinophilic colitis. 3. Leukocytosis: resolved 4. Diarrhea: RESOLVED 5. Severe gastropathy likely secondary to NSAID use, need to r/o H. pylori PLAN: 1. continue protonix for total of 2 wks at bid dosing 2. dc NSAID, counseled through specimen accessioner 3. f/u stool studies results, particularly O&P as pt had peripheral eosinophilia 4. dc cipro and flagyl 5. OK from GI perspective to dc home if ok with primary and other consultants. Problems: Consultation Date/Type/Reason Admit Date/Time Jul 16, 2016 at 05:34 Initial Consult Date Type of Consultation: GI 24 HR Interval Summary Free Text/Dictation no abdominal pain, no n/v, tolerates regular diet Constitutional: improved Exam/Review of Systems Vital Signs Vitals Vital Signs Date Time Temp Pulse Resp B/P Pulse Ox O2 Delivery O2 Flow Rate FiO2 07/19/16 20:31 97.9 52 16 110/72 98 07/19/16 09:17 Room Air Intake and Output 07/19/16 07/19/16 07/20/16 15:00 23:00 07:00 Intake Total 1600 ml 600 ml Balance 1600 ml 600 ml Exam Constitutional: alert, oriented, well developed Psych: nl mood/affect, no complaints Head: atraumatic, normocephalic Eyes: EOMI, nl conjunctiva, nl lids, nl sclera ENMT: mucosa pink and moist, nl external ears & nose, nl lips & teeth, nl nasal mucosa & septum Neck: non-tender, supple Respiratory: clear to auscultation, normal air movement Cardiovascular: nl pulses, regular rate and rhythm Gastrointestinal: bowel sounds, non-tender, soft Results Result Diagram: 07/19/16 0505 07/19/16 0505 Medications Medications Current Medications Sodium Chloride (NS) 1,000 ml @ 100 mls/hr Q10H IV Last administered on t 23:11; Admin Dose 100 MLS/HR; Start 07/16/16 at 05:42 Ondansetron HCl (Zofran Inj) 4 mg Q6H PRN IV NAUSEA AND/OR VOMITING Last administered on 07/18/16 18:35; Admin Dose 4 MG; Start 07/16/16 at 06:00 Acetaminophen (Tylenol Tab) 650 mg Q6H PRN PO PAIN LEVEL 1-3 OR FEVER Last administered on 07/18/16 10:22; Admin Dose 650 MG; Start 07/16/16 at 06:00 Morphine Sulfate 2 mg 2 mg Q4H PRN IV SEVERE PAIN LEVEL 7-10 Last administered on 07/16/16 11:28; Admin Dose 2 MG; Start 07/16/16 at 06:00 Ciprofloxacin/ Dextrose 200 ml @ 200 mls/hr Q12 IVPB Last administered on 07/19 21:37; Admin Dose 200 MLS/HR; Start 07/16/16 at 21:00 Metronidazole (Flagyl 500 Mg (Pmx)) 100 ml @ 100 mls/hr Q8 IVPB Last administered on 07/20/16 06:00; Admin Dose 100 MLS/HR; Start 07/16/16 at 14:00 Docusate Sodium (Colace) 100 mg BID PO Last administered on 07/19/16 09:53; Admin Dose 100 MG; Start 07/16/16 at 21:00 Pantoprazole (Protonix Iv) 40 mg BID@06,18 IV Last administered on 07/20/16 05 :59; Admin Dose 40 MG; Start 07/18/16 at 11:00 MICHAEL ANGULO MD Jul 20, 2016 06:07
[2016-07-20 06:38] LABS: POTASSIUM 3.9 mmol/L (3.5-5.1)
[2016-07-20 06:40] LABS: CREATININE 0.8 mg/dl (0.61-1.24)
[2016-07-20 06:41] LABS: CALCIUM 8.7 mg/dl (8.4-10.2)
[2016-07-20 06:42] LABS: BASOPHILS % 0.2 % (0.0-2.0); EOSINOPHILS % 26.6 % (0.0-7.0); HEMATOCRIT 40.9 % (42.0-52.0); HEMOGLOBIN 14.1 g/dl (14.0-18.0); LYMPHOCYTES # 1.8 10^3/ul (0.8-2.9); LYMPHOCYTES % 23.4 % (15.0-51.0); MEAN CORPUSCULAR HEMOGLOBIN 30.3 pg (29.0-33.0); MEAN CORPUSCULAR HGB CONC 34.6 g/dl (32.0-37.0); MEAN CORPUSCULAR VOLUME 87.6 fl (82.0-101.0); MEAN PLATELET VOLUME 8.4 fl (7.4-10.4); MONOCYTE # 0.7 10^3/ul (0.3-0.9); MONOCYTES % 9.2 % (0.0-11.0); NEUTROPHIL # 3.1 10^3/ul (1.6-7.5); NEUTROPHILS % 40.6 % (39.0-77.0); PLATELET COUNT 202 10^3/UL (140-440); RED BLOOD COUNT 4.67 10^6/ul (4.70-6.10); RED CELL DISTRIBUTION WIDTH 13.4 % (11.5-14.5); UNCORRECTED WBC 7.6 10^3/ul (4.8-10.8); WHITE BLOOD COUNT 7.6 10^3/ul (4.8-10.8)
[2016-07-20 06:49] LABS: CONDITION 1; LH ANALYZER COMMENTS 1
[2016-07-20 07:29] VITALS: BP 111/64; RESP 18
--- NOTE | 2016-07-20 08:57 | PDOCDIS ---
Discharge Instructions CONDITION Patient Condition: Stable HOME CARE INSTRUCTIONS: Special Diet: regular ACTIVITY: Activity Restrictions: Slowly Increase Activity FOLLOW UP/APPOINTMENTS Appointments Please take your medications as prescribed, and see your doctor in the clinic in 1 week. WILLIAMS JENNINGS Jul 20, 2016 08:57
[2016-07-20] MEDS ORDERED: ONDA-43 PO (08:59)
[2016-07-20] MEDS ORDERED: PANT40TA3 PO (08:59)
[2016-07-20] MEDS: SOD CHLORIDE 0.9% 1,000 ML IV SCH (09:00)
[2016-07-20] MEDS: CIPROFLOXACIN 400MG/D5W 200 ML IVPB SCH (09:01)
[2016-07-20] MEDS: DOCUSATE SODIUM 100 MG CAP PO SCH (09:01)
--- NOTE | 2016-07-20 09:29 | DS ---
DATE OF ADMISSION: 07/16/2016 DATE OF DISCHARGE: 07/20/2016 This is a 36-year-old male originally admitted on 07/16/2014 being discharged home on 07/20/2013. HOSPITAL COURSE: The patient came in initially with abdominal pain and diarrhea for about a week pr ior to admission. He had a leukocytosis. He was admitted to med/surg floor, seen by GI team. He w as found with a peripheral eosinophilia and had a CT scan of the abdomen and pelvis performed that s howed possible findings of acute enteritis. Again, patient was seen by GI team. He had an EGD and colonoscopy performed. He was found with moderate to severe gastropathy and rectal polyp, status po st polypectomy. The patient initially was placed on antibiotics. His leukocytosis resolved. His C. diff test and was negative. We are still waiting for the ova and parasites tests, but again the GI team felt that the patient had a peripheral eosinophilia as well. The patient was able to tolerate diet as his antibiotics were stopped after a couple of days. He was able to ambulate and tolerate a p.o. diet. His vital signs were stable on the day of discharge. He had some mild bradycardia, bu t he was asymptomatic and patient was recommended to be discharged home with Protonix b.i.d. for 14 days, so will send him home today in improved condition. DISCHARGE MEDICATIONS: He will be sent with 1. Zofran 4 mg p.o. q.6h. p.r.n. 2. Also Protonix 40 mg p.o. b.i.d. for 2 weeks total. He will need to follow up with primary care doctor and GI doctor in the clinic in the next 1 to 2 we eks. FINAL DIAGNOSES: 1. Abdominal pain and diarrhea with acute enteritis and eosinophilia on CBC, now improving after a couple of days of treatment with antibiotics and PPI. 2. Severe gastropathy on EGD with atrophic edematous duodenum, now improved. 3. Leukocytosis, resolved. Time spent on discharging patient 40 minutes. Dictated By: WILLIAMS BAKER Conf#: [id number] DID#: [id number]
== END 2016-07-20 12:55 | disposition home or self-care (01) | DRG 392 ==
LOC: E/R 03:49 → MS2 05:34
PROVIDERS: ADMIT Student in an Organized Health Care Education/Training Program; ATTEND Student in an Organized Health Care Education/Training Program
PROC: 0DBG8ZX Excision of Left Large Intestine, Via Natural or Artificial Opening Endoscopic, Diagnostic (ICD-10-PCS; 2016-07-19)
PROC: 0DBF8ZX Excision of Right Large Intestine, Via Natural or Artificial Opening Endoscopic, Diagnostic (ICD-10-PCS; 2016-07-19)
PROC: 0DBP8ZX Excision of Rectum, Via Natural or Artificial Opening Endoscopic, Diagnostic (ICD-10-PCS; 2016-07-19)
PROC: 0DB68ZX Excision of Stomach, Via Natural or Artificial Opening Endoscopic, Diagnostic (ICD-10-PCS; principal; 2016-07-19 08:00)
PROC: 0DBL8ZX Excision of Transverse Colon, Via Natural or Artificial Opening Endoscopic, Diagnostic (ICD-10-PCS; 2016-07-19 08:00)
DX: K52.9 Noninfective gastroenteritis and colitis, unspecified (principal); D72.1 Eosinophilia; K29.70 Gastritis, unspecified, without bleeding; E86.0 Dehydration; D72.829 Elevated white blood cell count, unspecified; R11.2 Nausea with vomiting, unspecified; K31.9 Disease of stomach and duodenum, unspecified; K44.9 Diaphragmatic hernia without obstruction or gangrene; K62.1 Rectal polyp; K64.8 Other hemorrhoids; K63.89 Other specified diseases of intestine; Z79.1 Long term (current) use of non-steroidal anti-inflammatories (NSAID)
CPT/HCPCS: 36415; 74176; 76705; 80048; 80053; 81003; 82270; 82607; 83690; 83735; 84443; 85025; 85610; 86703; 87045; 87075; 87177; 87205; 88305; 88312; 90686; 93005; 96361; 96365; 96366; 96368; 96375; 96376; C9113; J0744; J1170; J2270; J2405; J2765; J7030